=== PATIENT | female | born 1970 | race Asian ===

== ENCOUNTER 2018-01-20 19:53 | Emergency (ER) | payer OTHER ==
[~2018-01-20] VITALS: Ht 152.4 cm; Wt 53.8 kg
[~2018-01-20 19:53] MED LIST: LOSA1TAB PO
[2018-01-20 19:55] VITALS: TEMP 36.4; Ht 152.4 cm; Wt 53.8 kg
[2018-01-20 20:08] VITALS: O2SAT 98
--- NOTE | 2018-01-20 20:18 | EMERGENCY ROOM VISIT NOTE ---
History Report prepared by Kerri: James Jackson Under the Supervision of: Dr. Nabor Packer M.D. First contact with patient: 20:00 Chief Complaint: PALPITATIONS Stated Complaint: PALPATATIONS History of Present Illness The patient is a 47 year old female with a past medical history of hypertension who presents to the ED with a cc of intermittent palpitations beginning two and a half days ago. Positive for occasional dizziness. Negative for CP, SOB, nausea, and vomiting. The patient states that she has had similar symptoms before. She notes that it was found that she has PVCs present. She reports that she typically drinks decaf coffee but has had two cups of green tea within the last three days. The patient states that it feels as though her heart skips a beat. She notes that she can feel her symptoms radiate to her neck. She reports that she takes losartan for her hypertension. Source of History: patient Onset: two and a half days ago Position: other (heart) Quality: other (palpitations) Timing: intermittent Associated Symptoms: No chest pain, No SOB, No nausea, No vomiting Note: The patient also complains of occasional dizziness. Review of Systems See HPI for pertinent positives and negatives. A total of ten systems were reviewed and were otherwise negative. Past Medical & Surgical Medical Problems: (1) Hypertension Surgical Problems: (1) Previous section Family History Diabetes mellitus FHx: cancer FHx: myocardial infarction FHx: stroke Heart disease Hypertension Kidney disease Kidney stones Social History Smoking Status: Never Smoker Alcohol Use: occasionally Marital Status: Housing Status: lives with family Occupation Status: employed Current/Historical Medications Scheduled Atenolol (Tenormin), 1 TAB PO DAILY Losartan Potassium (Cozaar), 25 MG PO BID Scheduled PRN Cetirizine Hcl (Zyrtec), 10 MG PO HS PRN for Seasonal Allergies Allergies Coded Allergies: BEE STING (Verified Allergy, Unknown, UNKN, 07/05/14) Erythromycin (Verified Allergy, Unknown, difficulty breathing, 07/05/14) Physical Exam Vital Signs Date Time Temp Pulse Resp B/P (MAP) Pulse Ox O2 Delivery O2 Flow Rate FiO2 01/20/18 22:08 73 15 170/97 99 Room Air 01/20/18 20:52 81 01/20/18 20:08 98 Room Air 01/20/18 19:55 36.4 70 20 176/91 98 Room Air Physical Exam GENERAL: Awake, alert, well-appearing, NAD HENT: Normocephalic, atraumatic. EYES: Normal conjunctiva. Sclera non-icteric. NECK: Supple. No nuchal rigidity. FROM. RESPIRATORY: CTAB, no rhonchi, wheezing, crackles CARDIAC: Occasional extra beat but otherwise regular, no MRG ABDOMEN: Soft, NTND, BS+ MSK: No chest wall TTP, no LE edema NEURO: GCS 15, CN 2-12 intact, moves all 4s on command SKIN: No rash or jaundice noted. Medical Decision & Procedures ER Provider Diagnostic Interpretation: Radiology results as stated below per my review and radiologist interpretation: TWO VIEW CHEST FINDINGS: PA and lateral chest radiographs are compared to study dated 11/29/2013. The cardiomediastinal silhouette is unremarkable. The lungs and pleural spaces are clear. There is no pneumothorax. The bony thorax appears intact. IMPRESSION: No active disease in the chest. Electronically signed by: Tobias Colby M.D. 01/20/2018 8:43 PM Laboratory Results 01/20/18 20:30 Red Blood Count 4.62, Mean Corpuscular Volume 89.2, Mean Corpuscular Hemoglobin 31.0, Mean Corpuscular Hemoglobin Concent 34.7, Mean Platelet Volume 10.9, Neutrophils (%) (Auto) 52.4, Lymphocytes (%) (Auto) 41.0, Monocytes (%) (Auto) 4.7, Eosinophils (%) (Auto) 1.3, Basophils (%) (Auto) 0.4, Neutrophils # (Auto) 2.80, Lymphocytes # (Auto) 2.19, Monocytes # (Auto) 0.25, Eosinophils # (Auto) 0.07, Basophils # (Auto) 0.02 01/20/18 20:30 Test 01/20/18 20:30 White Blood Count 5.34 K/uL (4.8-10.8) Red Blood Count 4.62 M/uL (4.2-5.4) Hemoglobin 14.3 g/dL (12.0-16.0) Hematocrit 41.2 % (37-47) Mean Corpuscular Volume 89.2 fL (80-100) Mean Corpuscular Hemoglobin 31.0 pg (25-34) Mean Corpuscular Hemoglobin Concent 34.7 g/dl (32-36) Platelet Count 251 K/uL (130-400) Mean Platelet Volume 10.9 fL (7.4-10.4) Neutrophils (%) (Auto) 52.4 % Lymphocytes (%) (Auto) 41.0 % Monocytes (%) (Auto) 4.7 % Eosinophils (%) (Auto) 1.3 % Basophils (%) (Auto) 0.4 % Neutrophils # (Auto) 2.80 K/uL (1.4-6.5) Lymphocytes # (Auto) 2.19 K/uL (1.2-3.4) Monocytes # (Auto) 0.25 K/uL (0.11-0.59) Eosinophils # (Auto) 0.07 K/uL (0-0.5) Basophils # (Auto) 0.02 K/uL (0-0.2) RDW Standard Deviation 42.9 fL (36.4-46.3) RDW Coefficient of Variation 13.2 % (11.5-14.5) Immature Granulocyte % (Auto) 0.2 % Immature Granulocyte # (Auto) 0.01 K/uL (0.00-0.02) Anion Gap 7.0 mmol/L (3-11) Est Creatinine Clear Calc Drug Dose 39.0 ml/min Estimated GFR () 56.8 Estimated GFR (Non- 49.0 BUN/Creatinine Ratio 15.4 (10-20) Calcium Level 8.9 mg/dl (8.5-10.1) Phosphorus Level 3.4 mg/dl (2.5-4.9) Magnesium Level 2.5 mg/dl (1.8-2.4) Thyroid Stimulating Hormone (TSH) 2.210 uIu/ml (0.300-4.500) Laboratory results reviewed by me Medications Administered Medications (Trade) Dose Ordered Sig/Sarah Route Start Time Stop Time Status Last Admin Dose Admin Potassium Chloride (Klor-Con M10) 10 meq STK-MED ONCE .ROUTE 01/20/18 21:56 01/20/18 21:57 DC 01/20/18 21:59 40 MEQ ECG Per My Interpretation Indication: palpitations Rate (beats per minute): 74 Rhythm: sinus rhythm (with PVCs) Findings: other (Normal intervals, normal axis, no STS changes or TWI) ED Course 1999: The patient was evaluated in room A3. A complete history and physical exam was performed. 214: I reevaluated the patient. Discussed results and discharge instructions: She verbalized understanding and agreement. The patient is ready for discharge. Medical Decision Nursing notes reviewed. Ancillary studies and prior records reviewed. The patient is a 47 year old female with a past medical history of hypertension who presents to the ED with a cc of intermittent palpitations beginning two and a half days ago. Positive for occasional dizziness. Negative for CP, SOB, nausea, and vomiting. Differential diagnosis: Etiologies such as premature contractions, electrolyte abnormality, cardiac dysrhythmia, thyroid dysfunction, pulmonary embolism, infection, gastrointestinal, as well as others were entertained. Patient was seen and evaluated the bedside. Patient has noted some intermittent palpitations that have been ongoing for approximately 2-1/2 days. Patient does complain of occasional dizziness. Patient denies any syncope. Patient denies any prolonged heavy vaginal bleeding, bleeding from the rectum, or hematemesis. The patient is not taking blood thinning medications. Patient denies taking any supplements. Patient denies much caffeine use. Patient denies any alcohol or tobacco. Patient also denies any drug abuse. Patient did have blood work completed along with an EKG. The patient's EKG did show occasional PVCs. Patient's blood work is fairly unremarkable with the exception of mild hypokalemia. The patient does have mildly worsening CKD. Patient's creatinine went from 0.9-1.3 and a span of 4 years. Patient was told to increase her fluids. Patient was given some p.o. potassium. Magnesium slightly elevated this was not repleted. Patient was told of these findings and the patient was given a prescription for atenolol to take for whenever she is symptomatic. Patient was deemed suitable for outpatient follow-up and treatment at this time. Patient was given strict follow-up, discharge, and return precautions. All questions were answered. Patient was deemed suitable for outpatient follow-up at this time. Patient agreed with the plan of care and was safely discharged home. Blood Pressure Screening Patient's blood pressure: Elevated blood pressure Blood pressure disposition: Referred to PCP Impression Primary Impression: PVC (premature ventricular contraction) Additional Impressions: Palpitations Hypokalemia Scribe Attestation The scribe's documentation has been prepared under my direction and personally reviewed by me in its entirety. I confirm that the note above accurately reflects all work, treatment, procedures, and medical decision making performed by me. Departure Information Dispostion Home / Self-Care Prescriptions Atenolol (TENORMIN) 25 Mg Tab 1 TAB PO DAILY for 30 Days, #30 TAB 0 Refills Prov: Nabor Packer M.D. 01/20/18 Referrals No Doctor, Assigned (PCP) Forms HOME CARE DOCUMENTATION FORM, IMPORTANT VISIT INFORMATION, WORK / SCHOOL INSTRUCTIONS Patient Instructions ED Palpitations, Hypokalemia Dc, My [facility] Additional Instructions Please return to the emergency department if you have worsening or recurrent symptoms not amenable to at-home treatment. Please call for a follow-up appointment with her primary care physician. Please take your medications as prescribed. If you have other concerns and/or complaints please feel free to also call your primary care physician's office or return the ED for further evaluation, management, and treatment. Please consider ample clear fluid hydration. Please follow-up with your PCP for further evaluation and treatment. Take your medications as prescribed. Check your pulse prior to taking your beta -rivka medication. Consider withholding if your pulses less than 60 bpm. You have been examined and treated today on an emergency basis only. This is not a substitute for, or an effort to provide, complete comprehensive medical care. It is impossible to recognize and treat all injuries or illnesses in a single emergency department visit. It is therefore important that you follow up closely with [facility], your PCP, and/or your specialist(s). Call as soon as possible for an appointment. Thank you for your time and consideration. I look forward to speaking with you again soon. Please don't hesitate to call us if you have any questions. Problem Qualifiers
[2018-01-20 20:38] LABS: BASO % 0.4 %; BASO ABS # 0.02 K/uL (0-0.2); EOS % 1.3 %; EOS ABS # 0.07 K/uL (0-0.5); HEMATOCRIT 41.2 % (37-47); HEMOGLOBIN 14.3 g/dL (12.0-16.0); IG# 0.01 K/uL (0.00-0.02); LYMPH ABS # 2.19 K/uL (1.2-3.4); MEAN CELL VOLUME 89.2 fL (80-100); MEAN CORPUSCULAR HGB CONC 34.7 g/dl (32-36); MEAN PLATELET VOLUME 10.9 fL (7.4-10.4); MONO % 4.7 %; MONO ABS # 0.25 K/uL (0.11-0.59); NEUT % 52.4 %; PLATELET COUNT 251 K/uL (130-400); RED CELL DISTRIBUTION WIDTH CV 13.2 % (11.5-14.5); RED CELL DISTRIBUTION WIDTH SD 42.9 fL (36.4-46.3); WHITE BLOOD COUNT 5.34 K/uL (4.8-10.8)
--- NOTE | 2018-01-20 20:45 | DIAGNOSTIC IMAGING REPORT ---
TWO VIEW CHEST CLINICAL HISTORY: Palpitations. FINDINGS: PA and lateral chest radiographs are compared to study dated 11/29/2013. The cardiomediastinal silhouette is unremarkable. The lungs and pleural spaces are clear. There is no pneumothorax. The bony thorax appears intact. IMPRESSION: No active disease in the chest. Electronically signed by: Tobias Colby M.D. 01/20/2018 8:43 PM Dictated Date/Time: 01/20/2018 8:43 PM
[2018-01-20 21:06] LABS: CALCIUM 8.9 mg/dl (8.5-10.1); CREATININE 1.31 mg/dl (0.60-1.20); POTASSIUM 3.4 mmol/L (3.5-5.1)
[2018-01-20] MEDS ORDERED: CETI10TA10 PO (21:28)
[2018-01-20 21:32] LABS: PHOSPHORUS 3.4 mg/dl (2.5-4.9)
[2018-01-20] MEDS ORDERED: ATEN25TA PO (21:48)
[2018-01-20] MEDS ORDERED: POTASSIUM CHLORIDE 20 MEQ TABCR PO STA (21:53)
[2018-01-20] MEDS ORDERED: POTASSIUM CHLORIDE 10 MEQ TABCR ONE (21:56)
[2018-01-20 22:08] VITALS: BP 170/97; PULSE 73; O2SAT 99
== END 2018-01-20 22:11 | disposition home or self-care (01) ==
LOC: C.EDB 19:54 → C.EDA 22:11
DX: I49.3 Ventricular premature depolarization (principal); R00.2 Palpitations; E87.6 Hypokalemia; I10 Essential (primary) hypertension; Z83.3 Family history of diabetes mellitus; Z82.49 Family history of ischemic heart disease and other diseases of the circulatory system; Z82.3 Family history of stroke; Z91.030 Bee allergy status; Z88.8 Allergy status to other drugs, medicaments and biological substances